=== PATIENT | female | born 1960 | race Caucasian/White ===

== ENCOUNTER → 2016-07-23 | Outpatient (CLI) | payer OTHER ==
[~2016-07-23] MED LIST: FENTANYL PF 100 MCG/2ML ONE; GADOBUTROL 7.5 MMOL/7.5 ML PFS ONE; MIDAZOLAM 1 MG/ML, 5ML ONE
== END | disposition home or self-care (01) ==
LOC: RAD 07:52
PROVIDERS: ATTEND Specialist
DX: R90.82 White matter disease, unspecified (principal)
CPT/HCPCS: 70553; A9585; J2250; J3010; 99156; 99157

== ENCOUNTER 2016-11-17 21:20 | Emergency (ER) | payer OTHER ==
[~2016-11-17] VITALS: Ht 154.9 cm; Wt 67.8 kg
[2016-11-17 21:22] VITALS: BP 121/77
== END 2016-11-17 22:53 | disposition home or self-care (01) ==
LOC: ED 22:29
DX: S93.402A Sprain of unspecified ligament of left ankle, initial encounter (principal); S50.01XA Contusion of right elbow, initial encounter; M25.572 Pain in left ankle and joints of left foot; W19.XXXA Unspecified fall, initial encounter; Y93.89 Activity, other specified; Y99.8 Other external cause status; Y92.009 Unspecified place in unspecified non-institutional (private) residence as the place of occurrence of the external cause
CPT/HCPCS: 99284

== ENCOUNTER → 2018-03-11 | Outpatient (CLI) | payer OTHER | END | disposition home or self-care (01) | LOC: CFH 07:12 | PROVIDERS: ATTEND Nurse Practitioner | DX: S92.022K Displaced fracture of anterior process of left calcaneus, subsequent encounter for fracture with nonunion (principal); Q66.89 Other specified congenital deformities of feet; X58.XXXD Exposure to other specified factors, subsequent encounter ==

== ENCOUNTER 2018-07-28 09:11 | Outpatient (CLI) | payer OTHER ==
[2018-07-28] MEDS ORDERED: FENTANYL PF 100 MCG/2ML ONE ×2 (09:53)
[2018-07-28] MEDS ORDERED: MIDAZOLAM 1 MG/ML, 5ML ONE (09:54)
[2018-08-04 08:23] LABS: ALANINE AMINOTRANSFERASE 26 U/L (12-78); ALBUMIN 4.1 g/dL (3.4-5.0); ANION GAP 5 mmol/L (5-15); CALCIUM 9.3 mg/dL (8.5-10.1); CHLORIDE 105 mmol/L (98-107); CREATININE 1.03 mg/dL (0.55-1.02)
[2018-08-04 08:25] LABS: ALKALINE PHOSPHATASE 134 U/L (45-117); BILIRUBIN,TOTAL 0.3 mg/dL (0.2-1.0); TOTAL PROTEIN 7.4 g/dL (6.4-8.2)
== END 2018-07-28 23:59 | disposition home or self-care (01) ==
LOC: RAD 09:11
PROVIDERS: ATTEND Specialist
DX: M54.2 Cervicalgia (principal); G35 Multiple sclerosis
CPT/HCPCS: 72156; 99156; 99157; J2250; J3010

== ENCOUNTER 2018-08-04 07:03 | Day surgery (SDC) | payer OTHER ==
[~2018-08-04] VITALS: Ht 152.4 cm; Wt 68.0 kg
[2018-08-04 07:47] VITALS: BP 110/74
[2018-08-04] MEDS ORDERED: GLAT40SY SQ (07:50)
[2018-08-04] MEDS ORDERED: ESCI20TA10 PO (07:50)
[2018-08-04] MEDS ORDERED: LOSA1TAB19 PO (07:50)
[2018-08-04] MEDS ORDERED: ONDANSETRON 2MG/ML, 2ML ONE (08:55)
[2018-08-04] MEDS ORDERED: PROPOFOL 10 MG/ML, 20ML ONE (08:55)
[2018-08-04] MEDS ORDERED: GADOBUTROL 7.5 MMOL/7.5 ML PFS ONE (09:33)
[2018-08-04] MEDS ORDERED: GADOBUTROL 10 MMOL/10 ML PFS ONE (15:17)
== END 2018-08-04 11:30 | disposition home or self-care (01) ==
LOC: OUT 07:03
PROVIDERS: ATTEND Specialist
DX: M43.12 Spondylolisthesis, cervical region (principal); M50.822 Other cervical disc disorders at C5-C6 level
CPT/HCPCS: 72156; A9585; J2405; J2704

== ENCOUNTER 2018-11-24 08:04 | Emergency (ER) | payer OTHER ==
[~2018-11-24] VITALS: Ht 152.4 cm; Wt 66.0 kg
[~2018-11-24 08:04] MED LIST changes: +ESCI20TA10 PO; -FENTANYL PF 100 MCG/2ML ONE; -GADOBUTROL 7.5 MMOL/7.5 ML PFS ONE; +GLAT40SY SQ; +LOSA1TAB19 PO; -MIDAZOLAM 1 MG/ML, 5ML ONE
--- NOTE | 2018-11-24 08:32 | NUR ---
PT STATES ABD PAIN FOR 5 DAYS W/ N/V DENIES LOOSE STOOL. PT RESTING ON GURNEY. PA AT BEDSIDE DISCUSSING POC WITH THE PT AND SPOUSE.
[2018-11-24 09:04] LABS: BASOPHILS # (AUTO) 0.03 x10^3/uL (0-0.1); BASOPHILS % (AUTO) 0 % (0-1); EOSINOPHILS # (AUTO) 0.27 x10^3/uL (0-0.4); EOSINOPHILS % (AUTO) 3 % (1-7); LYMPHOCYTES # (AUTO) 1.21 x10^3/uL (1-3.4); LYMPHOCYTES % (AUTO) 13 % (22-44); MD NO; MEAN CORPUSCULAR HEMOGLOBIN 30.3 pg (27.0-34.8); MEAN CORPUSCULAR HGB CONC 32.7 g/dL (32.4-35.8); MEAN CORPUSCULAR VOLUME 92.6 fL (80-100); MEAN PLATELET VOLUME 7.9 fL (7.4-10.4); MONOCYTES # (AUTO) 0.64 x10^3/uL (0.2-0.8); MONOCYTES % (AUTO) 7 % (2-9); NEUTROPHILS # (AUTO) 6.94 x10^3/uL (1.8-6.8); NEUTROPHILS % (AUTO) 76 % (42-75); PLATELET COUNT 343 x10^3/uL (130-400); RED BLOOD COUNT 4.27 x10^6/uL (3.82-5.3); RED CELL DISTRIBUTION WIDTH 14.1 % (9.6-15.2)
[2018-11-24 09:06] LABS: ALANINE AMINOTRANSFERASE 45 U/L (12-78); ALBUMIN 3.8 g/dL (3.4-5.0); ANION GAP 6 mmol/L (5-15); CHLORIDE 108 mmol/L (98-107); CREATININE 1.12 mg/dL (0.55-1.02)
[2018-11-24 09:08] LABS: ALKALINE PHOSPHATASE 98 U/L (45-117); BILIRUBIN,TOTAL 0.4 mg/dL (0.2-1.0); TOTAL PROTEIN 7.4 g/dL (6.4-8.2)
[2018-11-24] MEDS ORDERED: ONDANSETRON 2MG/ML, 2ML IVPush ONE (10:00)
[2018-11-24] MEDS ORDERED: MAALOX/HYOSCYAMINE/LIDOCAINE 45 ML BTL PO ONE (10:00)
[2018-11-24] MEDS ORDERED: SODIUM CHLORIDE FLUSH 10ML SYR IVF ONE (10:00)
[2018-11-24] MEDS ORDERED: MORPHINE SULFATE 4 MG/ML, 1ML IVPush PRN (10:00)
[2018-11-24] MEDS ORDERED: FAMOTIDINE 20 MG/2 ML IVP ONE (10:00)
[2018-11-24 10:14] VITALS: BP 120/65
[2018-11-24] MEDS ORDERED: ONDANSETRON 2MG/ML, 2ML ONE (10:29)
[2018-11-24] MEDS ORDERED: MAALOX/HYOSCYAMINE/LIDOCAINE 45 ML BTL ONE (10:30)
[2018-11-24] MEDS ORDERED: FAMOTIDINE 20 MG/2 ML ONE (10:30)
[2018-11-24] MEDS ORDERED: MORPHINE SULFATE 4 MG/ML, 1ML ONE (10:30)
--- NOTE | 2018-11-24 10:35 | NUR ---
PIV STARTED. PT MEDICATED. PT UNABLE TO VOID AT SECOND ATTEMPT. AWAITING U/S REPORT.
--- NOTE | 2018-11-24 11:36 | NUR ---
TO BEDSIDE TO UPDATE PT AND FAMILY ON POC. PT STILL UNABLE TO VOID FOR SAMPLE. STRAIGHT CATH UA COLLECTED AND SENT TO LAB. PT STATES FEELING BETTER SINCE PAIN MEDICATION. CALL LIGHT WITHIN REACH
[2018-11-24 12:09] LABS: MICROSCOPIC NOT IND
[2018-11-24 12:17] LABS: CULTURE INDICATED? NO
== END 2018-11-24 12:54 | disposition home or self-care (01) ==
LOC: ED 10:20
DX: K29.00 Acute gastritis without bleeding (principal)
CPT/HCPCS: 36415; 76700; 80053; 81003; 83690; 85025; 96374; 96375; 99284; J2270; J2405; J3490